=== PATIENT | male | born 1960 | race Caucasian/White ===

== ENCOUNTER 2016-05-03 13:02 | Inpatient (IN) | payer OTHER ==
[2016-05-03 14:14] VITALS: BMI 28.1
--- NOTE | 2016-05-03 15:10 | HP ---
COWS - Scale Resting Pulse: 0= [place] 80 or Below Sweatin= Chills/Flushing Restless Observation: 3= Extraneous Movement Pupil Size: 2= Moderately Dilated Bone or Joint Aches: 4=Acute Joint/Muscle Pain Runny Nose/ Eye Tearin= Nasal Congestion GI Upset > 30mins: 1= Stomach Cramp Tremor Observation: 2= Slight Tremor Visible Yawning Observation: 1= 1-2x During Session Anxiety or Irritability: 2=Irritable/Anxious Goose Flesh Skin: 0=Smooth Skin COWS Score: 17 CIWA Score - CIWA Score Nausea/Vomitin-No Nausea/No Vomiting Muscle Tremors: 4-Moderate,w/Arms Extend Anxiety: 4-Mod. Anxious/Guarded Agitation: 4-Moderately Restless Paroxysmal Sweats: 2 Orientation: 0-Oriented Tacttile Disturbances: 3-Moderate Itch/Numb/Burn Auditory Disturbances: 0-None Visual Disturbances: 0-None Headache: 1-Very Mild CIWA-Ar Total Score: 18 Admission ROS BHS - HPI Chief Complaint: DETOX TX FOR HEROIN,XANAX/KLONOPIN DEPENDENCE. "I'M TOO OLD FOR THIS. I'M NO GOOD FOR MY FAMILY NO MORE. NO GOOD TO MY NO MORE. NO GOOD EXAMPLE FOR MY SON WHO'S USING DRUG NOW"."I DON'T WANNA BE SICK ANYMORE". Allergies/Adverse Reactions: Allergies Allergy/AdvReac Type Severity Reaction Status Date / Time No Known Allergies Allergy Verified 11/10/14 16:39 History of Present Illness: 55 Y/O MALE WITH A HX OF HEROIN,COCAINE,KLONOPIN,STREET METHADONE DEPENDENCE SEEKING DETOX TX. PT HAS PREVIOUS HX OF DETOX ADMISSION AND SIGNED OUT AMA NEXT DAY. PT HAS BEEN TEAMED ON ADMISSION AND REMINDED THE NEED TO COMPLETE TREATMENT FOR NEXT LEVEL OF TREATMENT NECESSARY FOR SOBRIETY. PT WANTS TO TAKE CARE OF HIS DRUG ADDICTION. Exam Limitations: No Limitations - Ebola screening Have you traveled outside of the country in the last 21 days: No (n) Have you had contact with anyone from an Ebola affected area: No Have you been sick,other than usual withdrawal symptoms: No Do you have a fever: No - Review of Systems Constitutional: Chills, Night Sweats, Changes in sleep EENT: reports: Blurred Vision (WEARS GLASSES), Nose Congestion, Dental Problems (UPPER/LOWER DENTURES) Respiratory: reports: Shortness of Breath (FROM SMOKING) Cardiac: reports: Lightheadedness GI: reports: Constipated, Poor Fluid Intake : reports: No Symptoms Reported Musculoskeletal: reports: Back Pain, Joint Pain, Muscle Pain Integumentary: reports: No Symptoms Reported Neuro: reports: Headache, Tremors Endocrine: reports: No Symptoms Reported Hematology: reports: No Symptoms Reported Psychiatric: reports: Orientated x3, Anxious, Depressed Other Systems: Reviewed and Negative Patient History - Patient Medical History Hx Anemia: No Hx Asthma: No Hx Chronic Obstructive Pulmonary Disease (COPD): No Hx Cardiac Disorders: Yes (HX OF SVT--ON DILTIAZEM) Hx Hypertension: No Hx Hypercholesterolemia: No HX Cerebrovascular Accident: No Hx Seizures: No Hx Diabetes: No Hx Gastrointestinal Disorders: No Hx Genitourinary Disorders: No Hx Sexually Transmitted Disorders: No Hx Renal Disease (ESRD): No Hx Thyroid Disease: No Hx Human Immunodeficiency Virus (HIV): No (NEGATIVE HX) Hx Hepatitis C: Yes (TREATED;CLAIMS NEGATIVE NOW.) Hx Depression: Yes (NO MEDS; DECLINES PSYCH EVAL) Hx Suicide Attempt: No (DENIES) Hx Schizophrenia: No - Patient Surgical History Past Surgical History: No Hx Neurologic Surgery: No Hx Cataract Extraction: No Hx Cardiac Surgery: No Hx Lung Surgery: No Hx Breast Surgery: No Hx Breast Biopsy: No Hx Abdominal Surgery: No Hx Appendectomy: No Hx Cholecystectomy: No Hx Genitourinary Surgery: No Hx Orthopedic Surgery: No Anesthesia Reaction: No - PPD History Previous Implant?: Yes Documented Results: Negative w/o proof Date: 11/12/14 PPD to be Administered?: Yes - Reproductive History Patient is a Female of Child Bearing Age (11 -55 yrs old): No (MALE) - Smoking Cessation Smoking history: Current every day smoker Have you smoked in the past 12 months: Yes Aproximately how many cigarettes per day: 20 Hx Chewing Tobacco Use: No Initiated information on smoking cessation: Yes 'Breaking Loose' booklet given: 05/03/16 - Substance & Tx. History Hx Alcohol Use: No (DENIES) Hx Substance Use: Yes (HEROIN/COCAINEKLONOPIN/STREET METHADONE) Substance Use Type: Cocaine, Heroin, Opiates, Tranquilizers Hx Substance Use Treatment: Yes ([facility]) - Substances Abused Benzodiazepine (Klonopin) Route: Oral Frequency: Daily Amount used: 6 MG Age of first use: 49 Date of Last Use: 05/03/16 Alprazolam (Xanax) Route: Oral Frequency: Daily Amount used: 4 MG Age of first use: 49 Date of Last Use: 05/02/16 Heroin Route: Inhalation Frequency: Daily Amount used: 2 BAGS Age of first use: 28 Date of Last Use: 05/03/16 Cocaine Route: Inhalation Frequency: Daily Amount used: $20 Age of first use: 20 Date of Last Use: 05/02/16 Non-Rx Methadone Frequency: Daily Amount used: 20-80 MG Age of first use: 37 Date of Last Use: 05/02/16 Family Disease History - Family Disease History Family Disease History: Heart Disease: Father ([place]-), Brother ([place]- ), [place]: Mother () Admission Physical Exam S - Vital Signs Vital Signs: Vital Signs - 24 hr 05/03/16 14:11 Temperature 97.5 F L Pulse Rate 75 Respiratory 16 Rate Blood Pressure 124/74 - Physical General Appearance: Yes: Moderate Distress, Irritable, Anxious HEENTM: Yes: EOMI, Normocephalic, VICTORINA, Pharynx Normal Respiratory: Yes: Chest Non-Tender, Lungs Clear, Normal Breath Sounds, No Respiratory Distress Neck: Yes: No masses,lesions,Nodules, Supple, Trachea in good position Breast: Yes: Breast Exam Deferred Cardiology: Yes: Regular Rhythm, Regular Rate, S1, S2 Abdominal: Yes: Normal Bowel Sounds, Non Tender, Soft Genitourinary: Yes: Other (N/C) Back: Yes: Within Normal Limits Musculoskeletal: Yes: full range of Motion, Gait Steady Extremities: Yes: Normal Range of Motion, Non-Tender 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 NML intact, Fully Oriented, Alert Integumentary: Yes: Dry, Warm Lymphatic: Yes: Within Normal Limits - Diagnostic (1) Migraine Current Visit: Yes Status: Chronic (2) Cocaine dependence, uncomplicated Current Visit: Yes Status: Acute (3) Sedative, hypnotic or anxiolytic dependence with withdrawal, uncomplicated Current Visit: Yes Status: Acute (4) Opioid dependence with withdrawal Current Visit: Yes Status: Acute (5) Hx of supraventricular tachycardia Current Visit: Yes Status: Chronic Comment: ON DILTIAZEM Cleared for Admission [facility] - Detox or Rehab [facility] Level of Care: Medically Managed Detox Regimen/Protocol: Methadone/Valium [facility] Breath Alcohol Content Breath Alcohol Content: 0 Urine Drug Screen - Results Drug Screen Negative: No Urine Drug Screen Results: AVE-Cocaine, OPI-Opiates, BZO-Benzodiazepines, MTD- Methadone, OXY-Oxycodone
[2016-05-03] MEDS ORDERED: ACETAMINOPHEN 325 MG TABLET (FP) PO PRN (15:47)
[2016-05-03] MEDS ORDERED: MAGNESIUM CITRATE 300 ML BOTTLE PO PRN (15:47)
[2016-05-03] MEDS ORDERED: P-EPHED 60MG/TRIPROLIDI 2.5MG TABLET PO PRN (15:47)
[2016-05-03] MEDS ORDERED: MAGNESIUM HYDROX 2400MG/30ML ORAL SUSPENSION 30 ML CUP PO PRN (15:47)
[2016-05-03] MEDS ORDERED: guaiFENesin/D-METHORPHAN HB 10 ML UNIT-DOSE CUPS PO PRN (15:47)
[2016-05-03] MEDS ORDERED: diphenhydrAMINE HCL 50 MG CAPSULE PO PRN (15:47)
[2016-05-03] MEDS ORDERED: MENTHOL/PHENOL 1 EACH UD MM PRN (15:47)
[2016-05-03] MEDS ORDERED: LOPERAMIDE HCL 2 MG CAPSULE PO PRN (15:47)
[2016-05-03] MEDS ORDERED: MAG HYDROX/AL HYDROX/SIMETH 30 ML UNIT-DOSE CUP PO PRN (15:47)
[2016-05-03] MEDS ORDERED: diazePAM 5 MG TABLET PO ONE (18:00)
[2016-05-03] MEDS ORDERED: METHADONE HCL 10 MG TABLET (FOR DETOX USE ONLY) PO ONE ×2 (18:00→23:00)
[2016-05-03] MEDS: NICOTINE 21 MG/24 HOURS TOPICAL PATCH TD SCH (19:15)
[2016-05-03 19:56] LABS: URINE APPEARANCE CLEAR; URINE BILIRUBIN NEGATIVE (NEGATIVE); URINE BLOOD NEGATIVE (NEGATIVE); URINE COLOR YELLOW; URINE GLUCOSE (UA) NEGATIVE (NEGATIVE); URINE KETONE NEGATIVE (NEGATIVE); URINE LEUK ESTERASE NEGATIVE (NEGATIVE); URINE NITRITE NEGATIVE (NEGATIVE); URINE PROTEIN NEGATIVE (NEGATIVE); URINE UROBILINOGEN NEGATIVE E.U./dl (0.2-1.0)
[2016-05-03] MEDS: THIAMINE HCL 100 MG TABLET (FP) PO SCH (22:17)
[2016-05-03] MEDS: diazePAM 5 MG TABLET PO SCH (22:17)
[2016-05-03] MEDS: hydrOXYzine PAMOATE 25 MG CAPSULE (FP) PO PRN (22:19)
[2016-05-04] MEDS: diazePAM 5 MG TABLET PO SCH ×3 (05:48→22:35)
[2016-05-04] MEDS: hydrOXYzine PAMOATE 25 MG CAPSULE (FP) PO PRN (05:49)
[2016-05-04] MEDS ORDERED: METHADONE HCL 10 MG TABLET (FOR DETOX USE ONLY) PO SCH (10:00)
[2016-05-04] MEDS ORDERED: PRENATAL VITAMINS W/ FOLIC ACID TABLET (FP) PO SCH (10:00)
[2016-05-04 10:03] LABS: MCH 28.9 pg (25.7-33.7); MEAN CELL VOLUME 87.5 fl (80-96); MEAN PLT VOLUME 9.1 fl (7.5-11.1); PLATELET COUNT 203 K/MM3 (134-434); RDW 13.4 % (11.9-15.9); WHITE BLOOD COUNT 9.2 K/mm3 (4.0-10.0)
[2016-05-04] MEDS: diazePAM 5 MG TABLET PO PRN ×2 (10:12→19:14)
[2016-05-04 10:27] LABS: ALK PHOS 78 U/L (45-117); ANION GAP 9 (8-16); BILIRUBIN,TOTAL 0.4 mg/dL (0.2-1.0); CO2 29 mmol/L (21-32); CREATININE 0.9 mg/dL (0.7-1.3); GLUCOSE,RANDOM 117 mg/dL (74-106); SGOT/AST 18 U/L (15-37); SGPT/ALT 28 U/L (12-78); TOT PROT 7.8 g/dl (6.4-8.2)
--- NOTE | 2016-05-04 10:29 | PN ---
S CIWA - CIWA Score Nausea/Vomitin-No Nausea/No Vomiting Muscle Tremors: 4-Moderate,w/Arms Extend Anxiety: 3 Agitation: 4-Moderately Restless Paroxysmal Sweats: 3 Orientation: 0-Oriented Tacttile Disturbances: 0-None Auditory Disturbances: 0-None Visual Disturbances: 0-None Headache: 0-None Present CIWA-Ar Total Score: 14 BHS COWS - Scale Resting Pulse: 1= [place] 81-100 Sweatin=Flushed/Facial Moisture Restless Observation: 1= Difficult to Sit Still Pupil Size: 0= Normal to Room Light Bone or Joint Aches: 2= Severe Diffuse Aches Runny Nose/ Eye Tearin= Nasal Congestion GI Upset > 30mins: 1= Stomach Cramp Tremor Observation of Outstretched Hands: 2= Slight Tremor Visible Yawning Observation: 1= 1-2x During Session Anxiety or Irritability: 2=Irritable/Anxious Goose Flesh Skin: 0=Smooth Skin COWS Score: 13 S Progress Note (SOAP) Subjective: shakes sweats interrupted sleep stomach ache irritable Objective: 05/04/16 10:27 Vital Signs Temperature 96.8 F L 05/04/16 09:42 Pulse Rate 83 05/04/16 09:42 Respiratory Rate 18 05/04/16 09:42 Blood Pressure 128/76 05/04/16 09:42 O2 Sat by Pulse Oximetry (%) Laboratory Tests 05/03/16 05/04/16 19:00 06:10 WBC 9.2 RBC 5.19 Hgb 15.0 Hct 45.5 MCV 87.5 MCHC 33.0 RDW 13.4 Plt Count 203 MPV 9.1 D Urine Color Yellow Urine Appearance Clear Urine pH 5.0 Ur Specific [place] 1.024 Urine Protein Negative Urine Glucose (UA) Negative Urine Ketones Negative Urine Blood Negative Urine Nitrite Negative Urine Bilirubin Negative Urine Urobilinogen Negative Ur Leukocyte Esterase Negative labs pending awake/alert ambulating no acute distress Assessment: 05/04/16 10:28 withdrawal sx Plan: continue detox increase fluids labs pending mylanta/mom
[2016-05-04] MEDS: NICOTINE 21 MG/24 HOURS TOPICAL PATCH TD SCH (11:43)
[2016-05-04] MEDS: dilTIAZem HCL 60 MG TABLET (FP) PO SCH ×2 (11:44→22:35)
--- NOTE | 2016-05-04 11:59 | CONSULT ---
[facility] Psychiatric Consult - Data Date of interview: 05/04/16 Admission source: [facility] Identifying data: This is 55 years old male with nno psychiatric hospitalization history intoxicated with: Cocaine, Opioids and Xanax Substance Abuse History: - Smoking Cessation. Smoking history: Current every day smoker. Have you smoked in the past 12 months: Yes. Aproximately how many cigarettes per day: 20. Hx Chewing Tobacco Use: No. Initiated information on smoking cessation: Yes. 'Breaking Loose' booklet given: 05/03/16. - Substance & Tx. History. Hx Alcohol Use: No (DENIES). Hx Substance Use: Yes (HEROIN/ COCAINEKLONOPIN/STREET METHADONE). Substance Use Type: Cocaine, Heroin, Opiates , Tranquilizers. Hx Substance Use Treatment: Yes ([facility]-DETOX). - Substances Abused. Benzodiazepine (Klonopin). Route: Oral. Frequency: Daily. Amount used: 6 MG. Age of first use: 49. Date of Last Use: 05/03/16. Alprazolam ( Xanax). Route: Oral. Frequency: Daily. Amount used: 4 MG. Age of first use: 49. Date of Last Use: 05/02/16. Heroin. Route: Inhalation. Frequency: Daily. Amount used: 2 BAGS. Age of first use: 28. Date of Last Use: . Cocaine. Route: Inhalation. Frequency: Daily. Amount used: $20. Age of first use: 20. Date of Last Use: 05/02/16. Non-Rx Methadone. Frequency : Daily. Amount used: 20-80 MG. Age of first use: 37. Date of Last Use: 05/02 Medical History: Migraine, Supraventricular thahicardia history Psychiatric History: Patient reprots to carry Bipolar disorder history, reports no medications taking prior to admission, as per compiuter there is a history of [id number] with medications Physical/Sexual Abuse/Trauma History: Denies Additional Comment: Observation. Detox Unit Care Protocol Mental Status Exam - Mental Status Exam Alert and Oriented to: Person Cognitive Function: Fair Patient Appearance: Unkempt Mood: Sad Affect: Flat Patient Behavior: Sedated Speech Pattern: Delayed Voice Loudness: Mildly Soft/Quiet Thought Process: Circumstantial Thought Disorder: Being Controlled Hallucinations: Denies Suicidal Ideation: Denies Homicidal Ideation: Denies Insight/Judgement: Fair Sleep: Difficulty falling asleep Muscle strength/Tone: Mild Hypotonicity Gait/Station: Shuffling Additional Comments: Observation. Detox Unit Care Protocol Psychiatric Findings - Problem List ([place] 1, 2,3) (1) Cocaine dependence, uncomplicated Current Visit: Yes Status: Acute (2) Opioid dependence with withdrawal Current Visit: Yes Status: Acute (3) Sedative, hypnotic or anxiolytic dependence with withdrawal, uncomplicated Current Visit: Yes Status: Acute (4) Drug-induced mood disorder Current Visit: No Status: Chronic (5) Bipolar disorder Current Visit: No Status: Suspected (6) Non compliance w medication regimen Current Visit: No Status: Suspected - Initial Treatment Plan Initial Treatment Plan: Observation. Detox Unit Care Protocol
[2016-05-04] MEDS: NICOTINE POLACRILEX 4 MG GUM BC PRN ×2 (12:26→22:36)
[2016-05-04] MEDS: IBUPROFEN 400 MG TABLET (FP) PO PRN ×2 (13:27→19:14)
--- NOTE | 2016-05-04 15:06 | EKG ---
Test Reason : Blood Pressure : / mmHG Vent. Rate : 080 BPM Atrial Rate : 080 BPM P-R Int : 186 ms QRS Dur : 092 ms QT Int : 360 ms P-R-T Axes : 069 054 066 degrees QTc Int : 415 ms NORMAL SINUS RHYTHM POSSIBLE LEFT ATRIAL ENLARGEMENT BORDERLINE ECG NO PREVIOUS ECGS AVAILABLE Confirmed by CAROLE WILLIS, FAITH ([id number]) on 05/04/2016 3:06:27 PM Referred By: Confirmed By:FAITH LAM MD
[2016-05-04] MEDS: THIAMINE HCL 100 MG TABLET (FP) PO SCH (22:35)
[2016-05-05 06:32] VITALS: BP 114/66; PULSE 65; TEMP 97.9
[2016-05-05] MEDS: diazePAM 5 MG TABLET PO PRN (06:55)
[2016-05-05] MEDS: NICOTINE POLACRILEX 4 MG GUM BC PRN (06:57)
--- NOTE | 2016-05-05 07:34 | PN ---
S CIWA - CIWA Score Nausea/Vomitin Muscle Tremors: 3 Anxiety: 3 Agitation: 3 Paroxysmal Sweats: 1-Minimal Palms Moist Orientation: 0-Oriented Tacttile Disturbances: 1-Very Mild Itch/Numbness Auditory Disturbances: 1-Very Mild Visual Disturbances: 1-Very Mild Sensitivity Headache: 2-Mild CIWA-Ar Total Score: 18 BHS COWS - Scale Resting Pulse: 0= [place] 80 or Below Sweatin=Flushed/Facial Moisture Restless Observation: 3= Extraneous Movement Pupil Size: 1= Pupils >than Normal Bone or Joint Aches: 2= Severe Diffuse Aches Runny Nose/ Eye Tearin= Runny Nose/Eyes GI Upset > 30mins: 2= Nausea/Diarrhea Tremor Observation of Outstretched Hands: 2= Slight Tremor Visible Yawning Observation: 1= 1-2x During Session Anxiety or Irritability: 2=Irritable/Anxious Goose Flesh Skin: 0=Smooth Skin COWS Score: 17 S Progress Note (SOAP) Subjective: alert,irritable,anxious,interrupted sleep,pain in the body and back,tremor Objective: 05/05/16 07:43 Vital Signs Temperature 97.9 F 05/05/16 06:31 Pulse Rate 65 05/05/16 06:31 Respiratory Rate 16 05/05/16 06:31 Blood Pressure 114/66 05/05/16 06:31 O2 Sat by Pulse Oximetry (%) Laboratory Last Values WBC 9.2 K/mm3 (4.0-10.0) 05/04/16 06:10 RBC 5.19 M/mm3 (4.00-5.60) 05/04/16 06:10 Hgb 15.0 GM/dL (11.7-16.9) 05/04/16 06:10 Hct 45.5 % (35.4-49) 05/04/16 06:10 MCV 87.5 fl (80-96) 05/04/16 06:10 MCHC 33.0 g/dl (32.0-35.9) 05/04/16 06:10 RDW 13.4 % (11.9-15.9) 05/04/16 06:10 Plt Count 203 K/MM3 (134-434) 05/04/16 06:10 MPV 9.1 fl (7.5-11.1) D 05/04/16 06:10 Sodium 140 mmol/L (136-145) 05/04/16 06:10 Potassium 4.4 mmol/L (3.5-5.1) 05/04/16 06:10 Chloride 102 mmol/L (98-107) 05/04/16 06:10 Carbon Dioxide 29 mmol/L (21-32) 05/04/16 06:10 Anion Gap 9 (8-16) 05/04/16 06:10 BUN 17 mg/dL (7-18) 05/04/16 06:10 Creatinine 0.9 mg/dL (0.7-1.3) 05/04/16 06:10 Creat Clearance w eGFR > 60 (>60) 05/04/16 06:10 Random Glucose 117 mg/dL (74-106) H 05/04/16 06:10 Calcium 9.0 mg/dL (8.5-10.1) 05/04/16 06:10 Total Bilirubin 0.4 mg/dL (0.2-1.0) 05/04/16 06:10 AST 18 U/L (15-37) D 05/04/16 06:10 ALT 28 U/L (12-78) D 05/04/16 06:10 Alkaline Phosphatase 78 U/L (45-117) 05/04/16 06:10 Total Protein 7.8 g/dl (6.4-8.2) 05/04/16 06:10 Albumin 4.0 g/dl (3.4-5.0) 05/04/16 06:10 Urine Color Yellow 05/03/16 19:00 Urine Appearance Clear 05/03/16 19:00 Urine pH 5.0 (5.0-8.0) 05/03/16 19:00 Ur Specific [place] 1.024 (1.001-1.035) 05/03/16 19:00 Urine Protein Negative (NEGATIVE) 05/03/16 19:00 Urine Glucose (UA) Negative (NEGATIVE) 05/03/16 19:00 Urine Ketones Negative (NEGATIVE) 05/03/16 19:00 Urine Blood Negative (NEGATIVE) 05/03/16 19:00 Urine Nitrite Negative (NEGATIVE) 05/03/16 19:00 Urine Bilirubin Negative (NEGATIVE) 05/03/16 19:00 Urine Urobilinogen Negative E.U./dl (0.2-1.0) 05/03/16 19:00 Ur Leukocyte Esterase Negative (NEGATIVE) 05/03/16 19:00 RPR Titer Nonreactive (NONREACTIVE) 05/04/16 06:10 Assessment: 05/05/16 07:44 withdrawal symptom Plan: continue detox
--- NOTE | 2016-05-05 07:50 | DS ---
[facility] Detox Discharge Summary Admission Date: 05/03/16 - History Present History: Cocaine Dependence, Opioid Dependence, Sedative Dependence Additional Comments: patient did not want to complete treatment,signed release ama,advise follow up with pmd for medical problem Pertinent Past History: anxiety supraventricular tachycardia - Physical Exam Results Vital Signs: Vital Signs Temperature 97.9 F 05/05/16 06:31 Pulse Rate 65 05/05/16 06:31 Respiratory Rate 16 05/05/16 06:31 Blood Pressure 114/66 05/05/16 06:31 O2 Sat by Pulse Oximetry (%) Pertinent Admission Physical Exam Findings: withdrawal symptom - Medication Discharge Medications: Ambulatory Orders Diltiazem [Cardizem -] 60 mg PO BID 05/03/16 - Diagnosis (1) Cocaine dependence, uncomplicated Current Visit: Yes Status: Acute (2) Opioid dependence with withdrawal Current Visit: Yes Status: Acute (3) Sedative, hypnotic or anxiolytic dependence with withdrawal, uncomplicated Current Visit: Yes Status: Acute (4) Hx of supraventricular tachycardia Current Visit: Yes Status: Chronic (5) Anxiety Current Visit: No Status: Chronic - AMA Did Patient Leave Against Medical Advice: Yes
[2016-05-05] MEDS ORDERED: METHADONE HCL 5 MG TABLET (FOR DETOX USE ONLY) PO SCH (10:00)
[2016-05-05] MEDS ORDERED: diazePAM 5 MG TABLET PO SCH (10:00)
[2016-05-07] MEDS ORDERED: METHADONE HCL 10 MG TABLET (FOR DETOX USE ONLY) PO SCH (10:00)
[2016-05-07] MEDS ORDERED: diazePAM 5 MG TABLET PO SCH (10:00)
[2016-05-08] MEDS ORDERED: METHADONE HCL 5 MG TABLET (FOR DETOX USE ONLY) PO SCH (06:00)
== END 2016-05-05 07:56 | disposition left against medical advice (07) | DRG 743 ==
LOC: YASAS 13:02 → Y6N 17:43
PROVIDERS: ADMIT Internal Medicine Addiction Medicine; ATTEND Internal Medicine Addiction Medicine
PROC: HZ2ZZZZ Detoxification Services for Substance Abuse Treatment (ICD-10-PCS; principal; 2016-05-05)
DX: F11.23 Opioid dependence with withdrawal (principal); F13.230 Sedative, hypnotic or anxiolytic dependence with withdrawal, uncomplicated; F14.20 Cocaine dependence, uncomplicated; F31.9 Bipolar disorder, unspecified; F41.9 Anxiety disorder, unspecified; I47.1 Supraventricular tachycardia; Z53.29 Procedure and treatment not carried out because of patient's decision for other reasons
CPT/HCPCS: 36415; 80053; 81003; 85027; 86593; 93005; 93010

== ENCOUNTER 2016-11-08 10:23 | Inpatient (IN) | payer OTHER ==
[2016-11-08 11:07] VITALS: BMI 25.7
--- NOTE | 2016-11-08 13:36 | HP ---
COWS - Scale Resting Pulse: 1= [place] 81-100 Sweatin=Flushed/Facial Moisture Restless Observation: 1= Difficult to Sit Still Pupil Size: 0= Normal to Room Light Bone or Joint Aches: 1= Mild Discomfort Runny Nose/ Eye Tearin= None GI Upset > 30mins: 2= Nausea/Diarrhea Tremor Observation: 2= Slight Tremor Visible Yawning Observation: 1= 1-2x During Session Anxiety or Irritability: 4=Extreme Anxiety Goose Flesh Skin: 0=Smooth Skin COWS Score: 14 Admission ROS S - HPI Chief Complaint: "I need to get off of Methadone." Pt. is here to Detox from Methadone. Allergies/Adverse Reactions: Allergies Allergy/AdvReac Type Severity Reaction Status Date / Time No Known Allergies Allergy Verified 11/08/16 11:49 History of Present Illness: Pt. is a 56 YO male here to Detox from Methadone. Pt. is currently on MMTP Methadone ([facility], [place], [place]; Current Daily Dose: 20 mg, last day medicated: 11/08/2016). Pt. has had previous Detox admissions at [facility]. Exam Limitations: No Limitations - Ebola screening Have you traveled outside of the country in the last 21 days: No Have you had contact with anyone from an Ebola affected area: No Have you been sick,other than usual withdrawal symptoms: No Do you have a fever: No - Review of Systems Constitutional: Diaphoresis, Loss of Appetite, Malaise, Changes in sleep, Unintentional Wgt. Loss (Lost approx. 10 lbs. over the last 6 months.) EENT: reports: Other (Upper and Lower dentures; only has upper dentures with him for this admission.) Respiratory: reports: Cough Cardiac: reports: No Symptoms Reported GI: reports: Diarrhea, Nausea, Poor Appetite, Abdominal cramping : reports: No Symptoms Reported Musculoskeletal: reports: No Symptoms Reported Integumentary: reports: No Symptoms Reported Neuro: reports: Headache, Tremors Endocrine: reports: No Symptoms Reported Hematology: reports: No Symptoms Reported Psychiatric: reports: Judgement Intact, Mood/Affect Appropiate, Orientated x3, Agitated, Anxious, Depressed (Takes Xanax (Prescribed).) Other Systems: Reviewed and Negative Patient History - Patient Medical History Hx Anemia: No Hx Asthma: No Hx Chronic Obstructive Pulmonary Disease (COPD): No Hx Cancer: No Hx Cardiac Disorders: Yes (SVT in 1994; Last episode: approx. 2 years ago.) Hx Congestive Heart Failure: No Hx Hypertension: No Hx Hypercholesterolemia: No Hx Pacemaker: No HX Cerebrovascular Accident: No Hx Seizures: No Hx Dementia: No Hx Diabetes: No Hx Gastrointestinal Disorders: No Hx Liver Disease: Yes (Treated, 2012, did not complete; however, VL Undetectable as of 2015.) Hx Genitourinary Disorders: No Hx Sexually Transmitted Disorders: No Hx Renal Disease (ESRD): No Hx Thyroid Disease: No Hx Human Immunodeficiency Virus (HIV): No (NEGATIVE HX.) Hx Hepatitis C: Yes (TREATED; DID NOT COMPLETE FULL COURSE; CLAIMS NEGATIVE NOW. ) Hx Depression: Yes (Takes Xanax (Prescribed).) Hx Suicide Attempt: No (PATIENT DENIES CURRENT SI / HI.) Hx Bipolar Disorder: Yes (Takes Xanax (Prescribed).) Hx Schizophrenia: No Other Medical History: DENIES. - Patient Surgical History Past Surgical History: No Hx Neurologic Surgery: No Hx Cataract Extraction: No Hx Cardiac Surgery: No Hx Lung Surgery: No Hx Breast Surgery: No Hx Breast Biopsy: No Hx Abdominal Surgery: No Hx Appendectomy: No Hx Cholecystectomy: No Hx Genitourinary Surgery: No Hx Section: No Hx Orthopedic Surgery: No Anesthesia Reaction: No - PPD History Previous Implant?: Yes Documented Results: Negative w/o proof Implanted On Prior [facility] Admission?: Yes Date: 11/12/14 Results: 0 PPD to be Administered?: Yes - Reproductive History Patient is a Female of Child Bearing Age (11 -55 yrs old): No (PATIENT IS MALE.) - Smoking Cessation Smoking history: Current every day smoker Have you smoked in the past 12 months: Yes Aproximately how many cigarettes per day: 20 Cigars Per Day: 0 Hx Chewing Tobacco Use: No Initiated information on smoking cessation: Yes 'Breaking Loose' booklet given: 11/08/16 (GIVEN ON UNIT.) - Substance & Tx. History Hx Alcohol Use: No Hx Substance Use: Yes Substance Use Type: Opiates (MMTP.) Hx Substance Use Treatment: Yes (Previous Detox admissions at [facility].) - Substances Abused Methadone 20 mg.(maintenance) Route: Oral Frequency: Daily Amount used: 20 mg. Age of first use: 30 Date of Last Use: 11/08/16 (Program: [facility] MMT ([place], [place]).) Family Disease History - Family Disease History Family Disease History: Heart Disease: Father ([place]-), Brother ([place]- ), [place]: Mother (), Other: Son (History substance Use.) Admission Physical Exam S - Vital Signs Vital Signs: Vital Signs - 24 hr 11/08/16 11:02 Temperature 96 F L Pulse Rate 95 H Respiratory 20 Rate Blood Pressure 132/78 - Physical General Appearance: Yes: Nourished, Appropriately Dressed, Mild Distress, Tremorous, Anxious HEENTM: Yes: Hearing grossly Normal, Normocephalic, Normal Voice, VICTORINA, Pharynx Normal Respiratory: Yes: Chest Non-Tender, Lungs Clear, No Respiratory Distress, No Accessory Muscle Use Neck: Yes: No masses,lesions,Nodules, Supple, Trachea in good position Breast: Yes: Breast Exam Deferred Cardiology: Yes: Regular Rhythm, Regular Rate, S1, S2 Abdominal: Yes: Normal Bowel Sounds, Non Tender, Soft, Protuberent Genitourinary: Yes: Within Normal Limits Back: Yes: Normal Inspection Musculoskeletal: Yes: full range of Motion, Gait Steady Extremities: Yes: Normal Range of Motion, Non-Tender, Tremors Neurological: Yes: Fully Oriented, Alert, Normal Mood/Affect, Normal Response Integumentary: Yes: Normal Color, Dry, Warm Lymphatic: Yes: Within Normal Limits - Diagnostic (1) Opioid dependence with withdrawal Current Visit: Yes Status: Acute (2) Hx of supraventricular tachycardia Current Visit: Yes Status: Chronic Comment: ON DILTIAZEM; NON-COMPLIANT. (3) Bipolar disorder Current Visit: Yes Status: Chronic Qualifiers: Active/Remission status: remission status unspecified Qualified Code (s): F31.9 - Bipolar disorder, unspecified (4) Nicotine dependence Current Visit: Yes Status: Chronic Qualifiers: Nicotine product type: cigarettes Substance use status: uncomplicated Qualified Code(s): F17.210 - Nicotine dependence, cigarettes, uncomplicated (5) History of methadone use Current Visit: Yes Status: Chronic Comment: MMTP Program ([facility]). Cleared for Admission S - Detox or Rehab S Level of Care: Medically Managed (Advised patient to follow-up with [facility] Dr. Emery ([place], [place]) SOON POSSIBLE after discharge from Detox for medical assessment and for history of SVT.) Detox Regimen/Protocol: Methadone BHS Breath Alcohol Content Breath Alcohol Content: 0 Urine Drug Screen - Results Urine Drug Screen Results: BZO-Benzodiazepines, MTD-Methadone
[2016-11-08] MEDS ORDERED: P-EPHED 60MG/TRIPROLIDI 2.5MG TABLET PO PRN (14:15)
[2016-11-08] MEDS ORDERED: MAGNESIUM HYDROX 2400MG/30ML ORAL SUSPENSION 30 ML CUP PO PRN (14:15)
[2016-11-08] MEDS ORDERED: guaiFENesin/D-METHORPHAN HB 10 ML UNIT-DOSE CUPS PO PRN (14:15)
[2016-11-08] MEDS ORDERED: NICOTINE POLACRILEX 2 MG GUM BC PRN (14:15)
[2016-11-08] MEDS ORDERED: diphenhydrAMINE HCL 50 MG CAPSULE PO PRN (14:15)
[2016-11-08] MEDS ORDERED: MAG HYDROX/AL HYDROX/SIMETH 30 ML UNIT-DOSE CUP PO PRN (14:15)
[2016-11-08] MEDS ORDERED: MAGNESIUM CITRATE 300 ML BOTTLE PO PRN (14:15)
[2016-11-08] MEDS ORDERED: MENTHOL/PHENOL 1 EACH UD MM PRN (14:15)
[2016-11-08] MEDS ORDERED: ACETAMINOPHEN 325 MG TABLET (FP) PO PRN (14:15)
[2016-11-08] MEDS ORDERED: LOPERAMIDE HCL 2 MG CAPSULE PO PRN (14:15)
[2016-11-08] MEDS: diazePAM 5 MG TABLET PO PRN ×3 (15:21→22:34)
[2016-11-08] MEDS: NICOTINE 21 MG/24 HOURS TOPICAL PATCH TD SCH (15:22)
[2016-11-08] MEDS: METHADONE HCL 10 MG TABLET (FOR DETOX USE ONLY) PO ONE ×2 (15:22→15:23)
--- NOTE | 2016-11-08 16:38 | CONSULT ---
[facility] Psychiatric Consult - Data Date of interview: 11/08/16 Admission source: [facility] Identifying data: Readmission to [facility] for this 56 y/o male seeking detox treatment on for methadone and xanax dependence.Patient is ,a father of two,domiciled,unemployed (retired from [employer]) and supported on [facility] benefits. Substance Abuse History: Confirmed by patient in this interview. Smoking Cessation. Smoking history: Current every day smoker. Have you smoked in the past 12 months: Yes. Aproximately how many cigarettes per day: 20. Cigars Per Day: 0. Hx Chewing Tobacco Use: No. Initiated information on smoking cessation : Yes. 'Breaking Loose' booklet given: 11/08/16 (GIVEN ON UNIT.). - Substance & Tx. History. Hx Alcohol Use: No. Hx Substance Use: Yes. Substance Use Type : Opiates (MMTP.). Hx Substance Use Treatment: Yes (Previous Detox admissions at [facility] - Substances Abused. Methadone 20 mg.(maintenance). Route: Oral. Frequency: Daily. Amount used: 20 mg. Age of first use: 30. Date of Last Use: 11/08/16 (Program: [facility] ([place], [place]).) Medical History: History of hepatitis B + C and supraventricular tachycardia. Psychiatric History: Diagnosed with Bipolar Disorder.Followed by psychiatrist Dr Ceballos.Mr Anaya is currently on methadone maintenance (20 mg/day) at one of the [facility] program in [facility].No reported history of psychiatric hospitalizations.Declined to take latuda as recommended by his psychiatrist ( treatment failures with zoloft,prozac,paxil / due to non-adherence).Patient denies history of suicide attempts. Physical/Sexual Abuse/Trauma History: Patient denies. Additional Comment: Urine Drug Screen Results: BZO-Benzodiazepines, MTD- Methadone.Noted. Mental Status Exam - Mental Status Exam Alert and Oriented to: Time, Place, Person Cognitive Function: Good Patient Appearance: Well Groomed Mood: Nervous, Hopeful Affect: Appropriate, Normal Range Patient Behavior: Impulsive, Talkative, Cooperative Speech Pattern: Clear, Excessive Voice Loudness: Mildly Loud Thought Process: Goal Oriented Thought Disorder: Not Present Hallucinations: Denies Suicidal Ideation: Denies Homicidal Ideation: Denies Insight/Judgement: Poor Sleep: Fair Appetite: Good Muscle strength/Tone: Normal Gait/Station: Normal Psychiatric Findings - Problem List ([place] 1, 2,3) (1) Opioid dependence with withdrawal Current Visit: Yes Status: Acute (2) Nicotine dependence Current Visit: Yes Status: Acute Qualifiers: Nicotine product type: cigarettes Substance use status: uncomplicated Qualified Code(s): F17.210 - Nicotine dependence, cigarettes, uncomplicated (3) Bipolar disorder Current Visit: Yes Status: Chronic Qualifiers: Active/Remission status: remission status unspecified Qualified Code (s): F31.9 - Bipolar disorder, unspecified Comment: Self-report. (4) Drug-induced mood disorder Current Visit: Yes Status: Acute (5) Hx of supraventricular tachycardia Current Visit: Yes Status: Chronic Comment: ON DILTIAZEM; NON-COMPLIANT. - Initial Treatment Plan Initial Treatment Plan: Psychoeducation.Detoxification.Patient is offered a selection of mood stabilizers which includes but not limited to valproate, topiramate,lithium,lamotrigine and seroquel.Mr Anaya refuses to take any medication other than drugs necessary for detoxification purposes.Made aware of negative consequences of refusal of treatment for mood disorder.Observation.
[2016-11-08 16:58] LABS: URINE APPEARANCE CLEAR; URINE BILIRUBIN NEGATIVE (NEGATIVE); URINE BLOOD NEGATIVE (NEGATIVE); URINE COLOR YELLOW; URINE GLUCOSE (UA) NEGATIVE (NEGATIVE); URINE KETONE NEGATIVE (NEGATIVE); URINE LEUK ESTERASE NEGATIVE (NEGATIVE); URINE NITRITE NEGATIVE (NEGATIVE); URINE PROTEIN NEGATIVE (NEGATIVE); URINE UROBILINOGEN NEGATIVE mg/dL (0.2-1.0)
[2016-11-08 17:20] LABS: ALBUMIN 4.4 g/dl (3.4-5.0); ANION GAP 7 (8-16); CALCIUM 9.7 mg/dL (8.5-10.1); CO2 31 mmol/L (21-32); CREATININE 0.9 mg/dL (0.7-1.3); GLUCOSE,RANDOM 70 mg/dL (74-106); SGOT/AST 15 U/L (15-37); SGPT/ALT 25 U/L (12-78)
[2016-11-08 17:22] LABS: ALK PHOS 69 U/L (45-117); BILIRUBIN,TOTAL 0.6 mg/dL (0.2-1.0); TOT PROT 8.2 g/dl (6.4-8.2)
[2016-11-08 17:47] LABS: MCH 29.2 pg (25.7-33.7); MCHC 33.7 g/dl (32.0-35.9); MEAN CELL VOLUME 86.5 fl (80-96); MEAN PLT VOLUME 9.1 fl (7.5-11.1); PLATELET COUNT 268 K/MM3 (134-434); RDW 13.2 % (11.9-15.9); WHITE BLOOD COUNT 11.8 K/mm3 (4.0-10.0)
[2016-11-08] MEDS: dilTIAZem HCL 60 MG TABLET (FP) PO SCH ×2 (17:57→22:30)
[2016-11-08] MEDS: THIAMINE HCL 100 MG TABLET (FP) PO SCH (22:30)
[2016-11-08] MEDS: hydrOXYzine PAMOATE 50 MG CAPSULE (FP) PO PRN (22:32)
[2016-11-08] MEDS ORDERED: METHADONE HCL 10 MG TABLET (FOR DETOX USE ONLY) PO ONE (23:00)
[2016-11-09] MEDS: diazePAM 5 MG TABLET PO PRN ×3 (05:52→17:02)
[2016-11-09] MEDS: IBUPROFEN 400 MG TABLET (FP) PO PRN ×2 (05:53→17:03)
[2016-11-09] MEDS ORDERED: METHADONE HCL 10 MG TABLET (FOR DETOX USE ONLY) PO ONE (10:00)
[2016-11-09] MEDS: PRENATAL VITAMINS W/ FOLIC ACID TABLET (FP) PO SCH (10:22)
[2016-11-09] MEDS: dilTIAZem HCL 60 MG TABLET (FP) PO SCH ×2 (10:23→22:21)
[2016-11-09] MEDS: NICOTINE 21 MG/24 HOURS TOPICAL PATCH TD SCH (10:23)
--- NOTE | 2016-11-09 10:37 | PN ---
BHS COWS - Scale Resting Pulse: 1= MI 81-100 Sweatin= Chills/Flushing Restless Observation: 3= Extraneous Movement Pupil Size: 2= Moderately Dilated Bone or Joint Aches: 4=Acute Joint/Muscle Pain Runny Nose/ Eye Tearin= Runny Nose/Eyes GI Upset > 30mins: 1= Stomach Cramp Tremor Observation of Outstretched Hands: 2= Slight Tremor Visible Yawning Observation: 2= >3x During Session Anxiety or Irritability: 2=Irritable/Anxious Goose Flesh Skin: 0=Smooth Skin COWS Score: 20 S Progress Note (SOAP) Subjective: ANXIETY,RESTLESSNESS,IRRITABILITY,PACING. Objective: 11/09/16 10:36 Vital Signs 11/09/16 11/09/16 11/09/16 04:12 06:54 09:27 Temperature 98.1 F 97.1 F L Pulse Rate 85 71 Respiratory 18 18 18 Rate Blood Pressure 137/78 116/75 Laboratory Last Values WBC 11.8 K/mm3 (4.0-10.0) H 11/08/16 15:00 RBC 5.01 M/mm3 (4.00-5.60) 11/08/16 15:00 Hgb 14.6 GM/dL (11.7-16.9) 11/08/16 15:00 Hct 43.3 % (35.4-49) 11/08/16 15:00 MCV 86.5 fl (80-96) 11/08/16 15:00 MCH 29.2 pg (25.7-33.7) 11/08/16 15:00 MCHC 33.7 g/dl (32.0-35.9) 11/08/16 15:00 RDW 13.2 % (11.9-15.9) 11/08/16 15:00 Plt Count 268 K/MM3 (134-434) D 11/08/16 15:00 MPV 9.1 fl (7.5-11.1) 11/08/16 15:00 Sodium 141 mmol/L (136-145) 11/08/16 15:00 Potassium 4.7 mmol/L (3.5-5.1) 11/08/16 15:00 Chloride 103 mmol/L (98-107) 11/08/16 15:00 Carbon Dioxide 31 mmol/L (21-32) 11/08/16 15:00 Anion Gap 7 (8-16) L 11/08/16 15:00 BUN 8 mg/dL (7-18) D 11/08/16 15:00 Creatinine 0.9 mg/dL (0.7-1.3) 11/08/16 15:00 Creat Clearance w eGFR > 60 (>60) 11/08/16 15:00 Random Glucose 70 mg/dL (74-106) L D 11/08/16 15:00 Calcium 9.7 mg/dL (8.5-10.1) 11/08/16 15:00 Total Bilirubin 0.6 mg/dL (0.2-1.0) D 11/08/16 15:00 AST 15 U/L (15-37) 11/08/16 15:00 ALT 25 U/L (12-78) 11/08/16 15:00 Alkaline Phosphatase 69 U/L (45-117) 11/08/16 15:00 Total Protein 8.2 g/dl (6.4-8.2) 11/08/16 15:00 Albumin 4.4 g/dl (3.4-5.0) 11/08/16 15:00 Urine Color Yellow 11/08/16 15:00 Urine Appearance Clear 11/08/16 15:00 Urine pH 5.0 (5.0-8.0) 11/08/16 15:00 Ur Specific [place] 1.015 (1.005-1.025) 11/08/16 15:00 Urine Protein Negative (NEGATIVE) 11/08/16 15:00 Urine Glucose (UA) Negative (NEGATIVE) 11/08/16 15:00 Urine Ketones Negative (NEGATIVE) 11/08/16 15:00 Urine Blood Negative (NEGATIVE) 11/08/16 15:00 Urine Nitrite Negative (NEGATIVE) 11/08/16 15:00 Urine Bilirubin Negative (NEGATIVE) 11/08/16 15:00 Urine Urobilinogen Negative mg/dL (0.2-1.0) 11/08/16 15:00 Ur Leukocyte Esterase Negative (NEGATIVE) 11/08/16 15:00 RPR Titer Nonreactive (NONREACTIVE) 11/08/16 15:00 Assessment: 11/09/16 10:37 WITHDRAWAL SX Plan: CONTINUE DETOX
[2016-11-09] MEDS ORDERED: diazePAM 5 MG TABLET PO ONE (11:30)
--- NOTE | 2016-11-09 11:33 | EKG ---
Test Reason : Blood Pressure : / mmHG Vent. Rate : 072 BPM Atrial Rate : 072 BPM P-R Int : 174 ms QRS Dur : 092 ms QT Int : 386 ms P-R-T Axes : 075 063 067 degrees QTc Int : 422 ms NORMAL SINUS RHYTHM NORMAL ECG WHEN COMPARED WITH ECG OF 03-MAY-2016 18:55, NO SIGNIFICANT CHANGE WAS FOUND Confirmed by FAITH LAM MD ([id number]) on 11/09/2016 11:33:30 AM Referred By: Confirmed By:FAITH LAM MD
[2016-11-09] MEDS: diazePAM 5 MG TABLET PO SCH ×2 (15:25→22:21)
[2016-11-09] MEDS: THIAMINE HCL 100 MG TABLET (FP) PO SCH (22:21)
[2016-11-09] MEDS: hydrOXYzine PAMOATE 50 MG CAPSULE (FP) PO PRN (22:23)
[2016-11-10] MEDS: diazePAM 5 MG TABLET PO SCH ×3 (05:26→22:22)
[2016-11-10] MEDS ORDERED: METHADONE HCL 5 MG TABLET (FOR DETOX USE ONLY) PO ONE (10:00)
[2016-11-10] MEDS: dilTIAZem HCL 60 MG TABLET (FP) PO SCH ×2 (10:02→22:21)
[2016-11-10] MEDS: NICOTINE 21 MG/24 HOURS TOPICAL PATCH TD SCH (10:02)
[2016-11-10] MEDS: PRENATAL VITAMINS W/ FOLIC ACID TABLET (FP) PO SCH (10:02)
--- NOTE | 2016-11-10 10:52 | PN ---
S CIWA - CIWA Score Nausea/Vomitin-No Nausea/No Vomiting Muscle Tremors: 4-Moderate,w/Arms Extend Anxiety: 5 Agitation: 5 Paroxysmal Sweats: 1-Minimal Palms Moist Orientation: 0-Oriented Tacttile Disturbances: 3-Moderate Itch/Numb/Burn Auditory Disturbances: 0-None Visual Disturbances: 0-None Headache: 0-None Present CIWA-Ar Total Score: 18 BHS COWS - Scale Resting Pulse: 0= MD 80 or Below Sweatin= Chills/Flushing Restless Observation: 3= Extraneous Movement Pupil Size: 2= Moderately Dilated Bone or Joint Aches: 4=Acute Joint/Muscle Pain Runny Nose/ Eye Tearin= Nasal Congestion GI Upset > 30mins: 0= None Tremor Observation of Outstretched Hands: 2= Slight Tremor Visible Yawning Observation: 1= 1-2x During Session Anxiety or Irritability: 2=Irritable/Anxious Goose Flesh Skin: 0=Smooth Skin COWS Score: 16 S Progress Note (SOAP) Subjective: ANXIETY,IRRITABILITY,SWEATS," DRUG CRAVINGS". Objective: 11/10/16 10:51 Vital Signs 11/10/16 11/10/16 11/10/16 04:03 06:40 09:49 Temperature 96.1 F L 97.5 F L Pulse Rate 64 78 Respiratory 18 18 18 Rate Blood Pressure 141/81 125/81 Laboratory Last Values WBC 11.8 K/mm3 (4.0-10.0) H 11/08/16 15:00 RBC 5.01 M/mm3 (4.00-5.60) 11/08/16 15:00 Hgb 14.6 GM/dL (11.7-16.9) 11/08/16 15:00 Hct 43.3 % (35.4-49) 11/08/16 15:00 MCV 86.5 fl (80-96) 11/08/16 15:00 MCH 29.2 pg (25.7-33.7) 11/08/16 15:00 MCHC 33.7 g/dl (32.0-35.9) 11/08/16 15:00 RDW 13.2 % (11.9-15.9) 11/08/16 15:00 Plt Count 268 K/MM3 (134-434) D 11/08/16 15:00 MPV 9.1 fl (7.5-11.1) 11/08/16 15:00 Sodium 141 mmol/L (136-145) 11/08/16 15:00 Potassium 4.7 mmol/L (3.5-5.1) 11/08/16 15:00 Chloride 103 mmol/L (98-107) 11/08/16 15:00 Carbon Dioxide 31 mmol/L (21-32) 11/08/16 15:00 Anion Gap 7 (8-16) L 11/08/16 15:00 BUN 8 mg/dL (7-18) D 11/08/16 15:00 Creatinine 0.9 mg/dL (0.7-1.3) 11/08/16 15:00 Creat Clearance w eGFR > 60 (>60) 11/08/16 15:00 Random Glucose 70 mg/dL (74-106) L D 11/08/16 15:00 Calcium 9.7 mg/dL (8.5-10.1) 11/08/16 15:00 Total Bilirubin 0.6 mg/dL (0.2-1.0) D 11/08/16 15:00 AST 15 U/L (15-37) 11/08/16 15:00 ALT 25 U/L (12-78) 11/08/16 15:00 Alkaline Phosphatase 69 U/L (45-117) 11/08/16 15:00 Total Protein 8.2 g/dl (6.4-8.2) 11/08/16 15:00 Albumin 4.4 g/dl (3.4-5.0) 11/08/16 15:00 Urine Color Yellow 11/08/16 15:00 Urine Appearance Clear 11/08/16 15:00 Urine pH 5.0 (5.0-8.0) 11/08/16 15:00 Ur Specific [place] 1.015 (1.005-1.025) 11/08/16 15:00 Urine Protein Negative (NEGATIVE) 11/08/16 15:00 Urine Glucose (UA) Negative (NEGATIVE) 11/08/16 15:00 Urine Ketones Negative (NEGATIVE) 11/08/16 15:00 Urine Blood Negative (NEGATIVE) 11/08/16 15:00 Urine Nitrite Negative (NEGATIVE) 11/08/16 15:00 Urine Bilirubin Negative (NEGATIVE) 11/08/16 15:00 Urine Urobilinogen Negative mg/dL (0.2-1.0) 11/08/16 15:00 Ur Leukocyte Esterase Negative (NEGATIVE) 11/08/16 15:00 RPR Titer Nonreactive (NONREACTIVE) 11/08/16 15:00 Assessment: 11/10/16 10:52 WITHDRAWAL SX Plan: CONTINUE DETOX
[2016-11-10] MEDS: IBUPROFEN 400 MG TABLET (FP) PO PRN ×2 (11:17→17:17)
[2016-11-10] MEDS: diazePAM 5 MG TABLET PO PRN (17:16)
[2016-11-10] MEDS: THIAMINE HCL 100 MG TABLET (FP) PO SCH (22:21)
[2016-11-10] MEDS: hydrOXYzine PAMOATE 50 MG CAPSULE (FP) PO PRN (22:23)
[2016-11-11] MEDS: IBUPROFEN 400 MG TABLET (FP) PO PRN ×2 (05:38→18:44)
[2016-11-11] MEDS: diazePAM 5 MG TABLET PO PRN ×3 (05:38→17:16)
[2016-11-11] MEDS ORDERED: METHADONE HCL 10 MG TABLET (FOR DETOX USE ONLY) PO ONE (10:00)
[2016-11-11] MEDS ORDERED: METHADONE HCL 5 MG TABLET (FOR DETOX USE ONLY) PO ONE (10:00)
[2016-11-11] MEDS: diazePAM 5 MG TABLET PO SCH ×2 (10:13→22:22)
[2016-11-11] MEDS: dilTIAZem HCL 60 MG TABLET (FP) PO SCH ×2 (10:13→22:22)
[2016-11-11] MEDS: PRENATAL VITAMINS W/ FOLIC ACID TABLET (FP) PO SCH (10:13)
[2016-11-11] MEDS: NICOTINE 21 MG/24 HOURS TOPICAL PATCH TD SCH (10:13)
--- NOTE | 2016-11-11 20:04 | PN ---
BHS Progress Note (SOAP) Subjective: Anxious. Objective: PT. A & O X 3, OBSERVED AMBULATING ON UNIT. NO ACUTE DISTRESS. PT. DENIES CHEST PAIN. 11/11/16 20:02 Vital Signs Temperature 97.4 F L 11/11/16 17:47 Pulse Rate 68 11/11/16 17:47 Respiratory Rate 18 11/11/16 17:47 Blood Pressure 119/73 11/11/16 17:47 O2 Sat by Pulse Oximetry (%) Laboratory Tests 11/08/16 11/08/16 11/08/16 15:00 15:00 15:00 WBC 11.8 H RBC 5.01 Hgb 14.6 Hct 43.3 MCV 86.5 MCH 29.2 MCHC 33.7 RDW 13.2 Plt Count 268 D MPV 9.1 Sodium 141 Potassium 4.7 Chloride 103 Carbon Dioxide 31 Anion Gap 7 L BUN 8 D Creatinine 0.9 Creat Clearance w eGFR > 60 Random Glucose 70 L D Calcium 9.7 Total Bilirubin 0.6 D AST 15 ALT 25 Alkaline Phosphatase 69 Total Protein 8.2 Albumin 4.4 Urine Color Yellow Urine Appearance Clear Urine pH 5.0 Ur Specific [place] 1.015 Urine Protein Negative Urine Glucose (UA) Negative Urine Ketones Negative Urine Blood Negative Urine Nitrite Negative Urine Bilirubin Negative Urine Urobilinogen Negative Ur Leukocyte Esterase Negative RPR Titer 11/08/16 15:00 WBC RBC Hgb Hct MCV MCH MCHC RDW Plt Count MPV Sodium Potassium Chloride Carbon Dioxide Anion Gap BUN Creatinine Creat Clearance w eGFR Random Glucose Calcium Total Bilirubin AST ALT Alkaline Phosphatase Total Protein Albumin Urine Color Urine Appearance Urine pH Ur Specific [place] Urine Protein Urine Glucose (UA) Urine Ketones Urine Blood Urine Nitrite Urine Bilirubin Urine Urobilinogen Ur Leukocyte Esterase RPR Titer Nonreactive LABS NOTED. Assessment: 11/11/16 20:03 WITHDRAWAL SYMPTOMS. Plan: CONTINUE DETOX.
[2016-11-11] MEDS: THIAMINE HCL 100 MG TABLET (FP) PO SCH (22:22)
[2016-11-11] MEDS: hydrOXYzine PAMOATE 50 MG CAPSULE (FP) PO PRN (22:24)
[2016-11-12] MEDS: diazePAM 5 MG TABLET PO PRN (05:40)
[2016-11-12] MEDS ORDERED: METHADONE HCL 5 MG TABLET (FOR DETOX USE ONLY) PO ONE (06:00)
[2016-11-12 06:21] VITALS: BP 135/76; PULSE 73; TEMP 97.6
[2016-11-12] MEDS ORDERED: METHADONE HCL 10 MG TABLET (FOR DETOX USE ONLY) PO ONE (10:00)
--- NOTE | 2016-11-12 18:53 | DS ---
[facility] Detox Discharge Summary Admission Date: 11/08/16 Discharge Date: 11/12/16 - History Present History: Opioid Dependence, MMTP Additional Comments: PATIENT GOING HOME. PATIENT ADVISED TO FOLLOW-UP WITH DEPUTY CHIEF COUNSEL DR. RIZZO ( [place], [place] FOR HISTORY OF SVT AFTER DISCHARGE FROM DETOX. PATIENT ADVISED TO FOLLOW-UP WITH LOCAL 12-STEP / NA OUTPATIENT PROGRAMS FOR AFTERCARE. PATIENT WAS DISCHARGED FROM UNIT IN STABLE MEDICAL CONDITION. Pertinent Past History: Hep C, History of Supraventricular Tachycardia, Depression, Bipolar Disorder. - Physical Exam Results Vital Signs: Vital Signs Temperature 97.6 F 11/12/16 06:20 Pulse Rate 73 11/12/16 06:20 Respiratory Rate 18 11/12/16 06:20 Blood Pressure 135/76 11/12/16 06:20 O2 Sat by Pulse Oximetry (%) Pertinent Admission Physical Exam Findings: WITHDRAWAL SYMPTOMS. Laboratory Tests 11/08/16 11/08/16 11/08/16 15:00 15:00 15:00 WBC 11.8 H RBC 5.01 Hgb 14.6 Hct 43.3 MCV 86.5 MCH 29.2 MCHC 33.7 RDW 13.2 Plt Count 268 D MPV 9.1 Sodium 141 Potassium 4.7 Chloride 103 Carbon Dioxide 31 Anion Gap 7 L BUN 8 D Creatinine 0.9 Creat Clearance w eGFR > 60 Random Glucose 70 L D Calcium 9.7 Total Bilirubin 0.6 D AST 15 ALT 25 Alkaline Phosphatase 69 Total Protein 8.2 Albumin 4.4 Urine Color Yellow Urine Appearance Clear Urine pH 5.0 Ur Specific [place] 1.015 Urine Protein Negative Urine Glucose (UA) Negative Urine Ketones Negative Urine Blood Negative Urine Nitrite Negative Urine Bilirubin Negative Urine Urobilinogen Negative Ur Leukocyte Esterase Negative RPR Titer 11/08/16 15:00 WBC RBC Hgb Hct MCV MCH MCHC RDW Plt Count MPV Sodium Potassium Chloride Carbon Dioxide Anion Gap BUN Creatinine Creat Clearance w eGFR Random Glucose Calcium Total Bilirubin AST ALT Alkaline Phosphatase Total Protein Albumin Urine Color Urine Appearance Urine pH Ur Specific [place] Urine Protein Urine Glucose (UA) Urine Ketones Urine Blood Urine Nitrite Urine Bilirubin Urine Urobilinogen Ur Leukocyte Esterase RPR Titer Nonreactive LABS NOTED. - Treatment Hospital Course: Detox Protocol Followed, Detoxed Safely, Responded well, Discharged Condition Good Patient has Accepted a Rehab Referral to: PT GOING HOME; ADVISED TO F/P WITH 12- STEP/NA SUPPORT GROUP FOR AFTERCARE. - Medication Discharge Medications: Ambulatory Orders Diltiazem [Cardizem -] 60 mg PO BID #60 mg 11/12/16 - Diagnosis (1) Opioid dependence with withdrawal Status: Acute (2) Hx of supraventricular tachycardia Status: Chronic (3) Bipolar disorder Status: Chronic Qualifiers: Active/Remission status: remission status unspecified Qualified Code (s): F31.9 - Bipolar disorder, unspecified (4) Nicotine dependence Status: Chronic Qualifiers: Nicotine product type: cigarettes Substance use status: in withdrawal Qualified Code(s): F17.213 - Nicotine dependence, cigarettes, with withdrawal (5) History of methadone use Status: Chronic (6) Drug-induced mood disorder Status: Acute - AMA Did Patient Leave Against Medical Advice: No
[2016-11-13] MEDS ORDERED: METHADONE HCL 5 MG TABLET (FOR DETOX USE ONLY) PO ONE (06:00)
[2016-11-13] MEDS ORDERED: diazePAM 5 MG TABLET PO SCH (10:00)
== END 2016-11-12 06:50 | disposition home or self-care (01) | DRG 773 ==
LOC: YASAS 10:23 → Y3N 13:12
PROVIDERS: ADMIT Internal Medicine Addiction Medicine; ATTEND Internal Medicine Addiction Medicine
PROC: HZ2ZZZZ Detoxification Services for Substance Abuse Treatment (ICD-10-PCS; principal; 2016-11-08)
DX: F11.23 Opioid dependence with withdrawal (principal); F17.213 Nicotine dependence, cigarettes, with withdrawal; F19.24 Other psychoactive substance dependence with psychoactive substance-induced mood disorder; F31.9 Bipolar disorder, unspecified; B18.2 Chronic viral hepatitis C; Z86.79 Personal history of other diseases of the circulatory system
CPT/HCPCS: 36415; 80053; 81003; 85027; 86593; 93005; 93010